=== PATIENT | male | born 1950 | race Caucasian/White ===

== ENCOUNTER 2022-02-24 07:06 | Day surgery (SDC) | payer BC ==
[~2022-02-24] VITALS: Ht 185.4 cm; Wt 86.6 kg
[~2022-02-24 07:06] MED LIST: EPIN0.3P IM; MULTIPLE VITAM1 EAC1 PO; VITAMIN C500 M5 PO
[2022-02-24] MEDS ORDERED: ALLERGY RELIEF60 MG PO (07:26)
--- NOTE | 2022-02-24 09:13 | NUR ---
[facility]/22 0913 [facility]IV[facility] PACU NON RESPONSIVE TO NOXIOUS STIMULI WITH OPA IN PLACE. 0859 PT REACTIVE. OPA REMOVED. 0900 PT AWAKE AND SITTING UP IN BED. NO C/O'S. 0905 PT GETTING DRESSED WITH STAND BY ASSIST. 0910 DC INSTRUCTIONS GIVEN. ALL QUESTIONS ANSWERED.
--- NOTE | 2022-02-24 11:03 | OR ---
[facility] [address] [place] [address], [place] [address] Signed DATE OF OPERATION: 02/24/2022 SURGEON: Colin Gillis MD PREOPERATIVE DIAGNOSIS: Screening. POSTOPERATIVE DIAGNOSES: 1. Minimal left-sided diverticulosis. 2. 4 mm polyp hepatic flexure. 3. 4 mm polyp proximal transverse colon. 4. 6 mm polyp at 60 cm/left colon. 5. Minimal internal hemorrhoids. PROCEDURE: Colonoscopy with hot biopsy. ESTIMATED BLOOD LOSS: None. INDICATIONS: Sahil is a 72-year-old gentleman, asked to see me for a followup screening colonoscopy. He underwent an initial colonoscopy in 2010 at the age of 60. At that time, he did well with Versed and fentanyl. There were no findings. He has no lower GI complaints currently. There is no family history of colon cancer or polyps. In the office, I gave Sahil a pamphlet on colonoscopy. We had reviewed the nature of the test. There is risk including, but not limited to gas bloating, crampy abdominal pain, bleeding, perforation requiring surgery, and missed diagnosis. We also reviewed the need for IV conscious sedation. He had expressed understanding and wished to proceed. PROCEDURE NOTE: Sahil was taken into our endoscopy suite and placed in the left lateral decubitus position. He was given 6 mg of Versed and 100 mcg of fentanyl. Even then, he was wide awake, following commands and talking with us. We had done a digital rectal exam and he does have a moderately indurated and enlarged prostate gland. Good sphincter tone. No external hemorrhoids. The adult colonoscope had been introduced and advanced up near the hepatic flexure. Unfortunately, he was far too awake and had episodes of bradycardia with the Versed and fentanyl. He was either awake, talking or asleep and not breathing. We therefore brought in our anesthesia provider, who had a propofol with good results. He then relaxed and the camera passed quite nicely into the cecum itself. Electronically Signed By: COLIN GILLIS MD 02/24/22 1103 PATIENT NAME: SAHIL MOSES OPERATIVE REPORT DATE OF : 54 REPORT #: [id number] PHYSICIAN: COLIN GILLIS MD PCP: MINGO CAMPOS PA-C REPORT IS CONFIDENTIAL AND NOT TO BE RELEASED WITHOUT AUTHORIZATION [facility] [address] [place] [id number] Signed His prep was quite excellent. We could easily see the appendiceal orifice and the ileocecal valve. The scope was then slowly withdrawn. We took pictures throughout for photodocumentation. The above-mentioned polyps were easily removed with the help of hot biopsy forceps. There was just a few diverticula in the left colon. The rectum was unremarkable. He does have minimal internal hemorrhoid columns. After this, the gas was suctioned out and the colonoscope removed. Sahil tolerated the procedure quite well. RECOMMENDATIONS: I will see Sahil back in my office in 7 to 14 days to review his results. He should consider monitored anesthesia care with propofol in the future. Colin Gillis MD ALB/MODL /[id number] cc: HANNAH Quijano MD Copies: COLIN GILLIS MD ~ Electronically Signed By: COLIN GILLIS MD 02/24/22 1103 PATIENT NAME: SAHIL MOSES OPERATIVE REPORT DATE OF : 54 REPORT #: [id number] PHYSICIAN: COLIN GILLIS MD PCP: MINGO CAMPOS PA-C REPORT IS CONFIDENTIAL AND NOT TO BE RELEASED WITHOUT AUTHORIZATION
== END 2022-02-24 09:18 | disposition home or self-care (01) ==
LOC: DS 07:06 → OPS 07:06 → DS 08:15 → OPS 09:18
PROVIDERS: ATTEND Colon & Rectal Surgery
PROC: 0DBL8ZZ Excision of Transverse Colon, Via Natural or Artificial Opening Endoscopic (ICD-10-PCS; principal; 2022-02-24 08:15)
DX: Z12.11 Encounter for screening for malignant neoplasm of colon (principal); K57.30 Diverticulosis of large intestine without perforation or abscess without bleeding; K64.8 Other hemorrhoids; R00.1 Bradycardia, unspecified; E55.9 Vitamin D deficiency, unspecified; D12.4 Benign neoplasm of descending colon; D12.3 Benign neoplasm of transverse colon
CPT/HCPCS: 00811; J2250; J2704; J3010; J7121